=== PATIENT | male | born 1975 | race African-American/Black ===

== ENCOUNTER 2017-05-02 15:52 | Outpatient (CLI) | payer OTHER ==
--- NOTE | 2017-05-02 20:50 | MRI ---
MRI RIGHT SHOULDER WITHOUT CONTRAST 05/02/17 HISTORY: M24.811 - internal derangement of right shoulder. COMPARISON: None available. FINDINGS: BICEPS TENDON: There is mild to moderate extra-articular biceps tenosynovitis. Moderate intra-articular tendinosis. GLENOID LABRUM: Intact. ROTATOR CUFF: There is a high grade near complete tear of the anterior 1 cm supraspinatus tendon with a few bursal surface fibers remaining. No significant retraction. There is extensive tendinosis of the infraspinat us tendon with interstitial tearing as well as traction cysts of the greater tuberosity. BONES: There is a type II acromion with lateral downsloping. No acute fracture. No os acromiale. No malalign ment. Mild degenerative disease of the acromioclavicular joint. SOFT TISSUES: Moderate subacromial, subdeltoid bursal effusion. MUSCLES: Normal muscle signal and bulk. IMPRESSION: 1. Mild extra-articular biceps tenosynovitis as well as intra-articular tendinosis. 2. Intact glenoid labrum. 3. High grade near full thickness tear of the articular surface of the anterior 1 cm supraspinat us tendon without significant retraction due to a few intact bursal surface fibers. This is at the fo otprint. 4. Moderate subacrominal subdeltoid bursal effusion with a type II acromion and lateral downslop ing. POS: [facility]
--- NOTE | 2017-05-02 21:12 | MRI ---
MRI LEFT SHOULDER WITHOUT CONTRAST 05/02/17 HISTORY: Injury. M24.811 - internal derangement of shoulder. COMPARISON: None. FINDINGS: BICEPS TENDON: Normal. GLENOID LABRUM: There is a tear of the superior labrum with loss of normal substance of the labrum from 11 to 1 o'marcello ck with insinuation of fluid within the body of the labrum. ROTATOR CUFF: There is hidden interstitial tearing of the posterior 50% fibers of the supraspinatus tendon as well as some mild interstitial tearing and tendinosis of the infraspinatus tendon. No full thickness perfo ration. SOFT TISSUES: Mild subacromial/subdeltoid bursa effusion. There is mild thickening of the coracohumeral ligament. There is mild lateral downsloping of the acromion narrowing the subacromial space at 5 mm. MUSCLES: Normal muscle signal and bulk. IMPRESSION: 1. Superior labral tear from 11 o'clock - 1 o'clock extending to the biceps labral anchor. 2. Hidden interstitial tearing, mild to moderate, the supraspinatus tendon with tendinosis and l ow grade interstitial tearing of the infraspinatus tendon. 3. Well defined cystic structure within the skin anterior soft tissues measuring 2.5 x 1 x 2.8 c m likely a sebaceous cyst. Clinical correlation advised. 4. Mild lateral downsloping of the acromion likely causing impingement of the rotator cuff and m ild subacromial/subdeltoid bursal effusion. 1. POS: [facility]
== END 2017-05-02 15:53 | disposition home or self-care (01) ==
LOC: MRI 15:52
PROVIDERS: ATTEND Family Medicine
DX: M24.811 Other specific joint derangements of right shoulder, not elsewhere classified (principal); S43.492A Other sprain of left shoulder joint, initial encounter; M75.102 Unspecified rotator cuff tear or rupture of left shoulder, not specified as traumatic; M75.101 Unspecified rotator cuff tear or rupture of right shoulder, not specified as traumatic; M75.21 Bicipital tendinitis, right shoulder; M75.51 Bursitis of right shoulder

== ENCOUNTER 2017-10-19 09:53 | Outpatient (CLI) | payer OTHER | END 2017-10-19 09:54 | disposition home or self-care (01) | LOC: BICRAD 09:53 | PROVIDERS: ATTEND Internal Medicine | DX: Z02.71 Encounter for disability determination (principal); M19.071 Primary osteoarthritis, right ankle and foot; Z98.890 Other specified postprocedural states ==

== ENCOUNTER 2021-11-22 22:10 | Emergency (ER) | payer SELFPAY ==
[2021-11-23] MEDS ORDERED: Fluorescein Opthalmic Strip ONE
== END 2021-11-23 00:31 | disposition home or self-care (01) ==
LOC: ERS 22:10
DX: Z77.098 Contact with and (suspected) exposure to other hazardous, chiefly nonmedicinal, chemicals (principal)
CPT/HCPCS: 99283